=== PATIENT | male | born 1995 | race Caucasian/White ===

== ENCOUNTER 2025-01-14 13:16 | Emergency (ER) | payer OTHER, SELFPAY ==
--- NOTE | ~2025-01-14 | CT_ITS ---
CT abdomen pelvis w con INDICATION:abd pain, bloating, diarrhea . COMPARISON: None. TECHNIQUE: Axial images of the abdomen and pelvis were obtained following infusion of 100 mL Isovue 300. Dose optimization technique was utilized. FINDINGS: The lung bases are clear. The liver parenchyma is unremarkable. No intrahepatic mass or ductal dilatation is evident. The gallbladder is unremarkable. The pancreas and spleen are normal in appearance. The adrenal glands are symmetric in size. The kidneys demonstrate symmetric uptake and excretion of contrast. Nonobstructive 5.5 mm right renal stone is noted. No cystic mass is evident. There is no solid mass. There is no hydronephrosis. Evaluation of the stomach and bowel loops are limited due to lack of oral contrast. The appendix is normal in appearance. There is no bowel obstruction. The bladder and rectum are normal. No free intraperitoneal fluid or air is evident. There is no significant retroperitoneal lymphadenopathy. The aorta, visceral vessels and renal arteries demonstrate normal caliber and patency. The lower thoracic and lumbar vertebrae are in normal alignment. IMPRESSION: No acute abnormality is noted in the abdomen and pelvis. All CT scans at this facility are performed using low dose modulation techniques as appropriate to perform exam including the following: automated exposure control; use of iterative reconstruction technique; adjustment of the mA and/or kV according to patient size (this includes techniques or standardized protocols for targeted exams where dose is matched to indication/reason for exam). Reviewed, dictated and finalized at location S. IMPRESSION: No acute abnormality is noted in the abdomen and pelvis. All CT scans at this facility are performed using low dose modulation techniqu es as appropriate to perform exam including the following: automated exposure c ontrol; use of iterative reconstruction technique; adjustment of the mA and/or kV according to patient size (this includes techniques or standardized protocol s for targeted exams where dose is matched to indication/reason for exam).
--- NOTE | 2025-01-14 14:34 | ED_ITS ---
HPI - Abdominal Pain General Chief Complaint: Abdominal Pain Stated Complaint: abd pain Time Seen by Provider: 01/14/25 14:34 Focused HPI: This is a 29 year old male that presents to the ER for abdominal pain. Ongoing over the last week. Worse after he eats. In the mid/left abdomen, reports associated bloating. Reports some diarrhea. Denies vomiting. GENERAL: Well-appearing, well-nourished, and in no acute distress. HEAD: Normocephalic, atraumatic. CHEST: Clear to auscultation. ?No respiratory distress. HEART: Regular rate and rhythm.? NEURO: ?Alert and oriented x3. Patient screened in triage and initial orders placed.? ?Additional care and disposition to be based upon?diagnostic testing and treatment. Related Data Allergies Allergy/AdvReac Type Severity Reaction Status Date / Time No Known Allergies Allergy Verified 01/14/25 13:19 Discharge Plan Discharge Instructions: Antibiotic Form Patient Language: Panamanian Follow-up/Referrals: Ector Steinberg MD [Primary Care Provider, Family Practice]
[2025-01-14 15:23] LABS: Hematocrit 46.1 % (42.0-52.0); Hemoglobin 15.7 g/dL (14.0-18.0); Immature Granulocyte Percent A 0.4 % (0-0.5); Lymphocytes Absolute Auto 1.31 K/mm3 (0.9-3.2); Mean Corpuscular HGB Conc 34.1 g/dl (32-36); Mean Corpuscular Hemoglobin 30.5 pg (26-34); Mean Corpuscular Volume 89.7 fl (80-100); Nucleated Red Blood Cells Absolute Auto 0.000 K/mm3 (0.0-0.012); Nucleated Red Blood Cells Perc 0.0 % (0.0-0.2); Platelet Count Result 198 k/mm3 (150-375); Red Blood Count 5.14 M/mm3 (4.6-6.20); White Blood Count 10.9 K/mm3 (4.5-10.0)
[2025-01-14 15:24] VITALS: BP 137/85; PULSE 60; RESP 20; O2SAT 98
[2025-01-14 15:39] LABS: Alanine Aminotransferase 33 U/L (6-50); Albumin Level 5.0 g/dL (3.5-5.1); Alkaline Phosphatase 72 U/L (38-126); Anion Gap 10 mmol/L (4-12); Aspartate Amino Transferase 31 U/L (17-59); Bilirubin,Total 0.9 mg/dL (0.2-1.3); Blood Urea Nitrogen 10 mg/dL (9-20); Calcium 9.4 mg/dL (8.4-10.2); Carbon Dioxide 27 mmol/L (22-30); Chloride 102 mmol/L (98-107); Estimated CRCL calculation 123 ml/min; Estimated Glomerular Filt Rate > 60; Glucose 99 mg/dL (65-110); Lipase 40 U/L (23-300); Potassium 4.2 mmol/L (3.4-5.0); Sodium 139 mmol/L (137-145); Total Protein 8.1 g/dL (6.3-8.2)
[2025-01-14 15:43] LABS: Add Urine Microscopic? YES; Appearance Urine Clear (Clear); Glucose Urine UA Negative (Negative); Leukocyte Esterase Ur 1+ LEU/UL (Negative); Need Manual Microscopic Reviewed; Nitrate Urine Negative (Negative); Non Pathogenic Casts 0-2; Specific Grav Ur 1.008 (1.001-1.035)
--- NOTE | 2025-01-14 16:11 | ED.GENADULT ---
HPI - General Adult General Chief complaint: Abdominal Pain Stated complaint: abd pain Time Seen by Provider: 01/14/25 14:34 History of Present Illness HPI narrative: This is a 29-year-old male presenting with vague abdominal discomfort. For patient says he feels bloated after eating. He does not have any fevers chills nausea vomiting or diarrhea. Last bowel movement was earlier today. Patient was sent in because his primary care physician said his bowel sounds sounded ?distant.? Patient is incredibly anxious. Related Data Allergies Allergy/AdvReac Type Severity Reaction Status Date / Time No Known Allergies Allergy Verified 01/14/25 13:19 Exam Narrative: APPEARANCE: Anxious appearing Head: atraumatic. EYES: EOMI, NOSE: Atraumatic NECK: Trachea midline RESPIRATORY: No increased rate of breathing clear to auscultation CARDIOVASCULAR: RRR, no peripheral edema ABDOMINAL: Soft nontender with no guarding or rebound MUSCULOSKELETAl: No obvious deformities NEURO: Alert. Moving 4/4 extremities SKIN:: Warm, dry. Normal color PSYCHIATRIC: Normal affect Course Vital Signs Vital signs: Vital Signs Pulse Rate 60 01/14/25 15:24 Respiratory Rate 20 01/14/25 15:24 Blood Pressure 137/85 01/14/25 15:24 Pulse Oximetry 98 01/14/25 15:24 Pulse Rate 60 01/14/25 15:24 Respiratory Rate 20 01/14/25 15:24 Blood Pressure 137/85 01/14/25 15:24 Pulse Oximetry 98 01/14/25 15:24 Medical Decision Making [facility] Narrative Medical decision making narrative: -Course: 29-year-old male presenting with abdominal bloating after eating. Laboratory studies within normal limits. CT abdomen pelvis without acute intra-abdominal pathology. Patient will be discharged follow-up with primary care physician for further management. Patient is incredibly anxious. He was offered anxiety medications and declined. He asked repeatedly am I going to . -DDX includes but is not limited to: Dyspepsia, gastritis, anxiety, irritable bowel syndrome Vital Signs Vital Signs: Vital Signs Pulse Rate 60 01/14/25 15:24 Respiratory Rate 20 01/14/25 15:24 Blood Pressure 137/85 01/14/25 15:24 Pulse Oximetry 98 01/14/25 15:24 Pulse Rate 60 01/14/25 15:24 Respiratory Rate 20 01/14/25 15:24 Blood Pressure 137/85 01/14/25 15:24 Pulse Oximetry 98 01/14/25 15:24 Lab Data 01/14/25 15:15 01/14/25 15:15 Labs: Lab Results 01/14/25 Range/Units 15:15 WBC 10.9 H (4.5-10.0) K/mm3 RBC 5.14 (4.6-6.20) M/mm3 Hgb 15.7 (14.0-18.0) g/dL Hct 46.1 (42.0-52.0) % MCV 89.7 (80-100) fl MCH 30.5 (26-34) pg MCHC 34.1 (32-36) g/dl RDW 11.8 (11.5-14.5) % Plt Count 198 (150-375) k/mm3 MPV 11.2 H (7.4-10.4) fl Immature Gran % (Auto) 0.4 (0-0.5) % Neut % (Auto) 82.8 H (45.5-73.1) % Lymph % (Auto) 12.0 L (18.3-44.2) % [place] % (Auto) 4.4 (2.6-8.5) % Eos % (Auto) 0.2 (0-4.4) % Baso % (Auto) 0.2 (0.2-1.2) % Lymph # (Auto) 1.31 (0.9-3.2) K/mm3 [place] # (Auto) 0.5 (0.1-0.6) K/mm3 Eos # (Auto) 0.0 (0-0.3) K/mm3 Baso # (Auto) 0.0 (0.0-0.1) K/mm3 Abs Immat Gran (auto) 0.04 H (0.00-0.031) K/mm3 Absolute Neuts (auto) 9.1 H (1.3-6.7) K/mm3 Absolute Nucleated RBC 0.000 (0.0-0.012) K/mm3 Nucleated RBC % 0.0 (0.0-0.2) % Sodium 139 (137-145) mmol/L Potassium 4.2 (3.4-5.0) mmol/L Chloride 102 (98-107) mmol/L Carbon Dioxide 27 (22-30) mmol/L Anion Gap 10 (4-12) mmol/L BUN 10 (9-20) mg/dL Creatinine 0.98 (0.7-1.3) mg/dL Estim Creat Clear Calc 123 ml/min Estimated GFR > 60 (59 - ) Glucose 99 (65-110) mg/dL Calcium 9.4 (8.4-10.2) mg/dL Total Bilirubin 0.9 (0.2-1.3) mg/dL AST 31 (17-59) U/L ALT 33 (6-50) U/L Alkaline Phosphatase 72 (38-126) U/L Total Protein 8.1 (6.3-8.2) g/dL Albumin 5.0 (3.5-5.1) g/dL Lipase 40 (23-300) U/L Urine Color Yellow (Yellow) Urine Appearance Clear (Clear) Urine pH 5.5 (5.0-9.0) Ur Specific [place] 1.008 (1.001-1.035) Urine Protein Negative (Negative) mg/dL Urine Glucose (UA) Negative (Negative) mg/dL Urine Ketones Negative (Negative) mg/dL Ur Blood (Man) Negative (Negative) Urine Nitrate Negative (Negative) Urine Bilirubin Negative (Negative) Urine Urobilinogen 0.2 (<2.0) mg/dL Add Ur Microanalysis Reviewed Leukocyte Esterase Rfl 1+ H (Negative) SHAHBAZ/UL Urine RBC 0-2 (0-2) /hpf Urine WBC 0-5 (0-3) /hpf Ur Squamous Epith Cells None seen (Few) /hpf Urine Bacteria None seen /hpf Urine Casts 0-2 Discharge Plan Discharge Clinical Impression: Dyspepsia, Anxiety Patient Disposition: Home Condition: Stable Instructions: Antibiotic Form, Abdominal Pain (ED) Additional Instructions: You were seen emergency department for bloating. You can try [id number] Gas-X. Follow up with primary care physician for further management. If you develop fevers or severe abdominal pain he can return to the ED for re-evaluation. Patient Language: Vietnamese Follow-up/Referrals: Ector Steinberg MD [Primary Care Provider, [facility]] - 3 Days Referral Note: dyspepsia
[2025-01-14 16:43] VITALS: BP 139/79; PULSE 80; RESP 16; O2SAT 99
--- OUTSIDE RECORDS SUMMARY | 2025-01-14 20:06 | XMS_ITS | Clinical Summary ---
Author Organization [facility] on Address [address] [place] [address] [place] [address] Care Team Providers Care Hr Representative Name Role Phone Unavailable Primary Care Provider Unavailabl e Active Problems No known active problems Social History Tobacco Use Types Packs/Day Years Used Date Smoking Tobacco: Never Assessed Sex and Gender Information Value Date Recorded Sex Assigned at Not on file Legal Sex Male 4:21 PM [employer] SAL[employer] Gender Identity Not on file Sexual Orientation Not on file Last Filed Vital Signs Vital Sign Reading Time Taken Comments Blood Pressure 141/88 04/12/2020 4:30 PM [employer] Pulse 54 04/12/2020 4:30 PM [employer] Temperature 36.4 C (97.6 F) 04/12/2020 4:30 PM [employer] Respiratory Rate 22 04/12/2020 4:30 PM [employer] Oxygen Saturation 98% 04/12/2020 4:30 PM [employer] Inhaled Oxygen Concentration - - Weight 95.3 kg (210 lb) 04/12/2020 4:30 PM [employer] Height 185.4 cm (6' 1) 04/12/2020 4:30 PM [employer] Body Mass Index 27.71 04/12/2020 4:30 PM [employer] SALES [employer]GER Plan of Treatment Health Maintenance Due Date Last Done Comments DTAP/TDAP/TD VACCINES (1 - Tdap) 2012 HEPATITIS B VACCINES (1 of 3 - 19+ 3-dose series) 10/25 HPV VACCINES (1 - 3-dose SCDM series) 2020 INFLUENZA VACCINE (#1) 2024
== END 2025-01-14 16:49 | disposition home or self-care (01) ==
PROVIDERS: Physician Assistant; Emergency Provider Emergency Medicine; PCP Emergency Medicine
DX: R10.13 Epigastric pain (principal); F41.9 Anxiety disorder, unspecified
CPT/HCPCS: 36415; 74177; 80053; 81001; 83690; 85025; 87086; 99284; Q9967